=== PATIENT | female | born 1935 | race Caucasian/White ===

== ENCOUNTER → 2016-12-11 | Outpatient (REF) | payer MEDICARE ==
[~2016-12-11] MED LIST: ALBU83IN INH; BACT800T5 PO; BISO5TAB5 PO; HALO05TA PO; SYMB16INH INH; THEO30TASA PO
[2016-12-11 19:56] LABS: BASO % 0.1 % (0.0-1.0); EOS # 0.1 K/mm3 (0.0-0.50); LARGE UNSTAINED CELL # 0.1 K/mm3 (0.0-0.4); LARGE UNSTAINED CELL % 1.4 % (0.0-4.0); LYMPH # 1.5 K/mm3 (1.5-4.5); MEAN CORPUSCULAR HEMOGLOBIN 29.5 pg (27.0-33.0); MEAN CORPUSCULAR HGB CONC 31.4 g/dl (32.0-36.5); MEAN CORPUSCULAR VOLUME 93.8 fl (80.0-96.0); MONO # 0.3 K/mm3 (0.0-0.8); MONO % 3.8 % (0.0-5.0); NEUTROPHILS # 6.3 K/mm3 (1.8-7.7); NEUTROPHILS % 76.7 % (36.0-66.0); PLATELET COUNT, AUTOMATED 195 k/mm3 (150-450); RED CELL DISTRIBUTION WIDTH 15.3 % (11.5-14.5); WHITE BLOOD COUNT 8.2 K/mm3 (4.0-10.0)
[2016-12-11 20:12] LABS: CALCIUM LEVEL 9.8 MG/DL (8.8-10.2); CREATININE FOR GFR 2.02 MG/DL (0.55-1.02); GLOMERULAR FILTRATION RATE 25.2 (>32); POTASSIUM SERUM 4.8 MEQ/L (3.5-5.1)
[2016-12-11 20:14] LABS: FOLATE 15.7 NG/ML
== END ==
LOC: M SFHCPLAZ 17:35
PROVIDERS: ATTEND Family Medicine
DX: R64 Cachexia (principal); N18.3 Chronic kidney disease, stage 3 (moderate)

== ENCOUNTER 2017-04-30 19:36 | Emergency (ER) | payer MEDICARE ==
[~2017-04-30 19:36] MED LIST changes: +HALO0.5H PO; -HALO05TA PO; +THEO1TAB4 PO; -THEO30TASA PO
[2017-04-30] MEDS ORDERED: NS 1,000 ML IV ONE (19:45)
[2017-04-30 20:07] LABS: ABG BASE EXCESS -8.6 (-2.0-2.0); ABG HCO3 16.3 MEQ/L (22.0-26.0); ABG PARTIAL PRESSURE CO2 32.4 mmHg (35.0-45.0); ABG PARTIAL PRESSURE O2 223.9 mmHg (75.0-100.0); ABG STANDARD HCO3 17.6 MEQ/L (22.0-26.0); ABG TOTAL CO2 17.3 MEQ/L (23.0-31.0)
[2017-04-30] MEDS ORDERED: HYDROmorphone HCL 1 MG/ML SYRINGE (J1170) As Ordered ONE (20:07)
[2017-04-30 20:10] VITALS: BP 121/68
[2017-04-30] MEDS ORDERED: HYDROmorphone HCL 1 MG/ML SYRINGE (J1170) IV ONE (20:15)
[2017-04-30 20:21] LABS: INR 1.63
[2017-04-30 20:30] LABS: CALCIUM LEVEL 8.8 MG/DL (8.8-10.2); CREATININE FOR GFR 3.96 MG/DL (0.55-1.02); GLOMERULAR FILTRATION RATE 11.6 (>32); POTASSIUM SERUM 4.9 MEQ/L (3.5-5.1)
[2017-04-30 20:39] LABS: ADD MANUAL DIFFER YES; MEAN CORPUSCULAR HEMOGLOBIN 32.2 pg (27.0-33.0); MEAN CORPUSCULAR HGB CONC 30.7 g/dl (32.0-36.5); MEAN CORPUSCULAR VOLUME 104.8 fl (80.0-96.0); PLATELET COUNT, AUTOMATED 124 k/mm3 (150-450); RED CELL DISTRIBUTION WIDTH 16.6 % (11.5-14.5); WHITE BLOOD COUNT 7.2 K/mm3 (4.0-10.0)
[2017-04-30 20:43] LABS: NUCLEATED RED BLOOD CELL 2 % (0-0)
[2017-04-30 20:44] LABS: ANISOCYTOSIS 1+
[2017-04-30 20:45] LABS: HYPOCHROMASIA 1+
--- NOTE | 2017-05-01 08:22 | REP ---
Clinical: Chest pain. Comparison: 08/31/2016. Findings: Endotracheal tube approximately 4 cm above the jessika. Mediastinum and cardiac silhouette are stable. Lung mcnair demonstrate diffuse chronic interstitial changes. A rounded mass density measuring approximately 4.5 cm identified in the left upper lung zone represents a new finding compared to prior examination. Impression: 4 cm left upper lobe mass density. Signed by Naun Beth MD 05/01/2017 08:14 A
== END 2017-04-30 21:44 | disposition expired ==
LOC: M ED 19:36 → EDBD 19:36 → M ED 21:44
DX: I46.9 Cardiac arrest, cause unspecified (principal); C78.00 Secondary malignant neoplasm of unspecified lung; Z88.0 Allergy status to penicillin
CPT/HCPCS: 36600; 71010; 80048; 82550; 82553; 82803; 83605; 84484; 85025; 85610; 85730; 92950; 93041; 96374; 99285; J1170